=== PATIENT | female | born 1975 | race Caucasian/White ===

== ENCOUNTER 2019-03-03 00:55 | Emergency (ER) | payer OTHER ==
[~2019-03-03] VITALS: Ht 167.6 cm; Wt 62.7 kg
[2019-03-03 01:06] VITALS: BP 104/69; TEMP 98.5
[2019-03-03 04:45] VITALS: PULSE 92
== END 2019-03-03 04:45 | disposition home or self-care (01) ==
LOC: COL.ER 00:55
DX: S01.81XA Laceration without foreign body of other part of head, initial encounter (principal); F17.210 Nicotine dependence, cigarettes, uncomplicated; Z72.89 Other problems related to lifestyle; Z23 Encounter for immunization; W10.9XXA Fall (on) (from) unspecified stairs and steps, initial encounter; Y92.009 Unspecified place in unspecified non-institutional (private) residence as the place of occurrence of the external cause

== ENCOUNTER → 2019-03-09 | Outpatient (CLI) | payer OTHER ==
[2019-03-09 12:43] VITALS: BP 105/64; PULSE 112; TEMP 99
== END ==
LOC: COL.ER 12:26
DX: S01.111D Laceration without foreign body of right eyelid and periocular area, subsequent encounter (principal); X58.XXXD Exposure to other specified factors, subsequent encounter

== ENCOUNTER 2022-06-20 14:11 | Emergency (ER) | payer OTHER ==
[~2022-06-20] VITALS: Ht 167.6 cm; Wt 64.5 kg
[2022-06-20 14:22] VITALS: BP 164/95; PULSE 89; TEMP 99.1
[2022-06-20] MEDS ORDERED: AMOXICILLIN 8751 TAB PO (14:45)
== END 2022-06-20 15:34 | disposition home or self-care (01) ==
LOC: COL.ER 14:11
DX: S09.21XA Traumatic rupture of right ear drum, initial encounter (principal); H66.92 Otitis media, unspecified, left ear; F17.210 Nicotine dependence, cigarettes, uncomplicated; X58.XXXA Exposure to other specified factors, initial encounter